=== PATIENT | female | born 2000 | race Two or more races ===

== ENCOUNTER 2023-03-27 15:29 | Observation (INO) | payer MEDICAID ==
[~2023-03-27] VITALS: Ht 165.1 cm; Wt 83.5 kg
== END 2023-03-27 17:21 | disposition home or self-care (01) ==
LOC: LDRP 15:29
PROVIDERS: ADMIT Obstetrics & Gynecology; ATTEND Obstetrics & Gynecology
DX: O26.892 Other specified pregnancy related conditions, second trimester (principal); R10.32 Left lower quadrant pain; Z3A.24 24 weeks gestation of pregnancy
CPT/HCPCS: 59025; 76815; 81002; 94760; G0378

== ENCOUNTER → 2023-06-28 | Outpatient (CLI) | payer MEDICAID ==
[2023-06-28 11:34] LABS: Basophils # (auto) 0 10 ^3/uL (0-0.2); Basophils % (auto) 0.4 % (0.0-2.0); Eosinophils # (auto) 0.1 10 ^3/uL (0-0.8); Hematocrit 39.6 % (36.0-46.0); Hemoglobin 13.3 g/dL (12.2-16.2); Lymphocytes # (auto) 1.8 10 ^3/uL (0.4-5.4); Lymphocytes % (auto) 17.8 % (10.0-50.0); Mean Corpuscular Hemoglobin 29.3 pg (28.0-32.0); Mean Corpuscular Hgb Conc. 33.5 g/dL (32.0-36.0); Mean Corpuscular Volume 87.4 fL (80.0-100.0); Monocytes # (auto) 0.8 10 ^3/uL (0-1.3); Monocytes % (auto) 8.4 % (0.0-12.0); Neutrophils # (auto) 7.3 10 ^3/uL (1.6-8.6); Neutrophils % (auto) 72.4 % (37.0-80.0); Red Blood Cells 4.54 10^6/uL (4.0-5.20); Red Cell Distribution Width 15.8 % (11.8-14.3); White Blood Cell 10.1 10^3/uL (4.4-10.8)
[2023-06-29 07:07] LABS: RPR Non Reactive (Non Reactive)
[2023-06-29 10:07] LABS: Treponema Pallidum Ab LC Non Reactive (Non Reactive)
== END | disposition home or self-care (01) ==
LOC: LAB 11:00
PROVIDERS: ATTEND Obstetrics & Gynecology
DX: Z34.80 Encounter for supervision of other normal pregnancy, unspecified trimester (principal); Z3A.00 Weeks of gestation of pregnancy not specified
CPT/HCPCS: 36415; 84112; 85025; 86592

== ENCOUNTER 2023-06-30 08:45 | Inpatient (IN) | payer MEDICAID ==
[~2023-06-30] VITALS: Ht 165.1 cm; Wt 98.4 kg
[2023-06-30] MEDS ORDERED: LACT. RINGERS/OXYTOCIN 20UNITS 500 ML IV ONE ×2 (09:30→10:00)
[2023-06-30] MEDS ORDERED: BUTORPHANOL TARTRATE 2 MG/1 ML VIAL IV PRN ×2 (09:30)
[2023-06-30] MEDS ORDERED: PROMETHAZINE HCL 25 MG/ML 1ML IV PRN (09:30)
[2023-06-30] MEDS ORDERED: LIDOCAINE 2%HCL (LOCAL ANESTH.) INJ 20ML MDV IJ PRN (09:30)
[2023-06-30 09:45] LABS: Basophils # (auto) 0 10 ^3/uL (0-0.2); Basophils % (auto) 0.5 % (0.0-2.0); Eosinophils # (auto) 0.1 10 ^3/uL (0-0.8); Eosinophils % (auto) 1.2 % (0.0-7.0); Hematocrit 41.3 % (36.0-46.0); Hemoglobin 13.7 g/dL (12.2-16.2); Lymphocytes # (auto) 2.1 10 ^3/uL (0.4-5.4); Lymphocytes % (auto) 19.8 % (10.0-50.0); Mean Corpuscular Hemoglobin 29.1 pg (28.0-32.0); Mean Corpuscular Hgb Conc. 33.1 g/dL (32.0-36.0); Monocytes # (auto) 1.1 10 ^3/uL (0-1.3); Monocytes % (auto) 10.2 % (0.0-12.0); Neutrophils # (auto) 7.2 10 ^3/uL (1.6-8.6); Neutrophils % (auto) 68.3 % (37.0-80.0); Red Blood Cells 4.69 10^6/uL (4.0-5.20); Red Cell Distribution Width 15.5 % (11.8-14.3); White Blood Cell 10.5 10^3/uL (4.4-10.8)
[2023-06-30] MEDS: LACTATED RINGER'S 1,000 ML IV SCH ×6 (09:55→22:13)
[2023-06-30 10:00] LABS: Alanine Aminotransferase 59 U/L (7-40); Albumin 3.7 g/dL (3.2-4.8); Alkaline Phosphatase 307 U/L (46-116); Anion Gap 10 (5-15); Aspartate Aminotransferase 45 U/L (13-40); BUN/Creatinine Ratio 9.7 (10.0-20.0); Bilirubin, Total 0.7 mg/dL (0.2-1.0); Blood Urea Nitrogen 6 mg/dL (9-23); Calcium 9.4 mg/dL (8.5-10.1); Carbon Dioxide 19 mmol/L (20-30); Chloride 110 mmol/L (98-107); Glucose 86 mg/dL (74-106); Potassium 4.2 mmol/L (3.5-5.1); Sodium 139 mmol/L (136-145); Total Protein 6.5 g/dL (5.7-8.2)
[2023-06-30 10:01] LABS: INR 0.95 (0.9-1.15); Partial Thromboplastin Time 29.4 SEC (24.5-34.5)
[2023-06-30 10:17] LABS: Urine Bacteria FEW /hpf (None Seen); Urine Blood Negative /uL (Negative); Urine Clarity HAZY (Clear); Urine Color Colorless (Yellow); Urine Protein, UAD Negative (Negative); Urine Specific Gravity 1.006 (1.001-1.035); Urine Urobilinogen Normal (Negative); Urine WBC 12 /hpf (0 - 5); Urine pH 5.5 (5.0-8.0)
[2023-06-30 10:43] LABS: Amphetamine Screen, Urine Neg (NEGATIVE); Barbiturate Scree,Urine Neg (NEGATIVE); Benzodiazephine Screen, Urine Neg (NEGATIVE); Cocaine Screen, Urine Neg (NEGATIVE); Opiate Scree,Urine Neg (NEGATIVE)
[2023-06-30 10:44] LABS: Cannabinoid Screen, Urine Neg (NEGATIVE); Phencyclidine Screen, Urine Neg (NEGATIVE)
[2023-06-30 11:46] LABS: Uric Acid 6.6 mg/dL (3.1-7.8)
[2023-06-30] MEDS ORDERED: MAGNESIUM SULFATE 40MG/ML 1,000 ML IV SCH (13:45)
[2023-06-30] MEDS ORDERED: MAGNESIUM SULFATE 100 ML IV ONE (13:45)
[2023-06-30] MEDS ORDERED: LORazepam 2MG/ML-1ML VIAL IV ONE (13:45)
[2023-06-30 13:55] LABS: Protein, Urine 13.4 mg/dL (0.0-11.9)
[2023-06-30 13:58] LABS: Creatinine, Urine 19.55 mg/dL (30.0-125.0); Urine Protein/Creatinine Ratio 0.69
[2023-06-30] MEDS ORDERED: CARBOPROST TROMETHAMINE 250 MCG/1ML VIAL IM ONE (14:00)
[2023-06-30] MEDS ORDERED: TRANEXAMIC ACID 1,000 MG in SODIUM CHL 0.9% 100 ML IV ONE (14:00)
[2023-06-30] MEDS ORDERED: miSOPROStol 100 mcg TAB PR PRN (14:00)
[2023-06-30] MEDS ORDERED: miSOPROStol 100 mcg TAB SL PRN (14:00)
[2023-06-30] MEDS ORDERED: CARBOPROST TROMETHAMINE 250 MCG/1ML VIAL IM PRN (14:15)
[2023-06-30] MEDS: LACT. RINGERS/OXYTOCIN 20UNITS 1,000 ML IV SCH (16:02)
[2023-06-30] MEDS ORDERED: ACETAMINOPHEN 325 MG TAB PO PRN (18:30)
[2023-06-30] MEDS: DERMOPLAST 60ML BOTTLE TOP PRN (19:43)
[2023-06-30] MEDS: PHISODERM TOP SOLN 240ML BTL TOP PRN (19:43)
[2023-06-30] MEDS: WITCH HAZEL-GLYCERIN PAD TOP PRN (19:43)
[2023-06-30 20:00] VITALS: BP 134/71; PULSE 102; RESP 18; TEMP 98.4; O2SAT 98
[2023-06-30] MEDS: IBUPROFEN 600 MG TAB PO PRN (20:15)
[2023-06-30 21:00] VITALS: BP 132/73; PULSE 105; RESP 18; O2SAT 98
[2023-06-30 22:00] VITALS: BP 132/71; PULSE 107; RESP 18; O2SAT 100
[2023-06-30] MEDS ORDERED: DIPHENOXYLATE W/ATROPINE 2.5 MG TAB PO SCH (22:00)
[2023-06-30] MEDS: DOCUSATE SOD 100 MG CAP PO SCH (22:00)
[2023-06-30 23:00] VITALS: BP 117/66; PULSE 98; RESP 16; TEMP 98.4; O2SAT 100
[2023-07-01] VITALS (14 sets, daily range): BP systolic 94–147; BP diastolic 49–84; PULSE 60–106; RESP 16–20; TEMP 98.4–98.9; O2SAT 96–100
[2023-07-01] MEDS: LACT. RINGERS/OXYTOCIN 20UNITS 1,000 ML IV SCH (01:00)
[2023-07-01] MEDS ORDERED: MEASLES, MUMPS & RUBELLA VAC(MMRII) 0.5ML SC ONE (01:00)
[2023-07-01 06:33] LABS: Basophils # (auto) 0 10 ^3/uL (0-0.2); Basophils % (auto) 0.2 % (0.0-2.0); Eosinophils # (auto) 0 10 ^3/uL (0-0.8); Eosinophils % (auto) 0.3 % (0.0-7.0); Hematocrit 33.7 % (36.0-46.0); Hemoglobin 10.9 g/dL (12.2-16.2); Lymphocytes # (auto) 2.3 10 ^3/uL (0.4-5.4); Mean Corpuscular Hemoglobin 28.6 pg (28.0-32.0); Mean Corpuscular Hgb Conc. 32.4 g/dL (32.0-36.0); Mean Corpuscular Volume 88.2 fL (80.0-100.0); Monocytes # (auto) 1.7 10 ^3/uL (0-1.3); Monocytes % (auto) 11.2 % (0.0-12.0); Neutrophils # (auto) 11.5 10 ^3/uL (1.6-8.6); Neutrophils % (auto) 73.3 % (37.0-80.0); Nucleated Red Blood Cells % 0.1 %; Red Blood Cells 3.82 10^6/uL (4.0-5.20); Red Cell Distribution Width 15.7 % (11.8-14.3); White Blood Cell 15.6 10^3/uL (4.4-10.8)
[2023-07-01 07:06] LABS: RPR Non Reactive (Non Reactive)
[2023-07-01 07:11] LABS: Alanine Aminotransferase 48 U/L (7-40); Albumin 3.1 g/dL (3.2-4.8); Alkaline Phosphatase 239 U/L (46-116); Anion Gap 6 (5-15); Aspartate Aminotransferase 32 U/L (13-40); BUN/Creatinine Ratio 8.3 (10.0-20.0); Bilirubin, Total 0.7 mg/dL (0.2-1.0); Blood Urea Nitrogen 5 mg/dL (9-23); Calcium 7.2 mg/dL (8.7-10.4); Carbon Dioxide 21 mmol/L (20-30); Chloride 110 mmol/L (98-107); Glucose 101 mg/dL (74-106); Potassium 3.8 mmol/L (3.5-5.1); Sodium 137 mmol/L (136-145); Total Protein 5.3 g/dL (5.7-8.2)
[2023-07-01] MEDS: IBUPROFEN 600 MG TAB PO PRN ×2 (09:44→20:26)
[2023-07-01] MEDS: DOCUSATE CALCIUM 240 MG CAP PO SCH (09:44)
[2023-07-01] MEDS: WITCH HAZEL-GLYCERIN PAD TOP PRN (19:50)
[2023-07-01] MEDS: DERMOPLAST 60ML BOTTLE TOP PRN (19:51)
[2023-07-01] MEDS: PHISODERM TOP SOLN 240ML BTL TOP PRN (20:27)
[2023-07-01] MEDS: DOCUSATE SOD 100 MG CAP PO SCH (22:13)
[2023-07-02 03:18] VITALS: BP 98/56; PULSE 88; RESP 16; TEMP 98.5; O2SAT 99
[2023-07-02 07:00] VITALS: BP 93/56; PULSE 72; RESP 16; TEMP 98.7; O2SAT 98
[2023-07-02] MEDS: DOCUSATE CALCIUM 240 MG CAP PO SCH (10:00)
[2023-07-02 11:05] VITALS: BP 121/71; PULSE 92; RESP 16; TEMP 98.5; O2SAT 98
[2023-07-02] MEDS ORDERED: MEASLES, MUMPS & RUBELLA VAC(MMRII) 0.5ML SC ONE (12:20)
[2023-07-03 21:06] LABS: Treponema pallidum Ab (FTA-Ab) Non Reactive (Non Reactive)
== END 2023-07-02 13:55 | disposition home or self-care (01) | DRG 560 ==
LOC: LDRP 08:45 → UNDOADMOB 08:45 → LDRP 08:54 → UNDOADMOB 09:21 → LDRP 09:21 → OBSVTOIN 09:21 → INTOOBSV 09:21 → LDRP 09:22
PROVIDERS: ADMIT Obstetrics & Gynecology; ATTEND Obstetrics & Gynecology
PROC: 10E0XZZ Delivery of Products of Conception, External Approach (ICD-10-PCS; principal; 2023-06-30)
PROC: 0KQM0ZZ Repair Perineum Muscle, Open Approach (ICD-10-PCS; 2023-06-30)
PROC: 3E0234Z Introduction of Serum, Toxoid and Vaccine into Muscle, Percutaneous Approach (ICD-10-PCS; 2023-07-02)
DX: O14.94 Unspecified pre-eclampsia, complicating childbirth (principal); Z37.0 Single live birth; O42.92 Full-term premature rupture of membranes, unspecified as to length of time between rupture and onset of labor; O70.1 Second degree perineal laceration during delivery; Z3A.38 38 weeks gestation of pregnancy; Z23 Encounter for immunization
CPT/HCPCS: 36415; 59025; 59409; 80053; 80307; 81001; 81002; 82570; 83735; 84156; 84550; 85025; 85610; 85730; 86592; 86850; 86900; 86901; 94760; 94762; 96360; 96361; 96365; 96366; 96372; G0378; J2590

== ENCOUNTER 2024-09-22 11:09 | Emergency (ER) | payer SELFPAY ==
[~2024-09-22] VITALS: Ht 165.1 cm; Wt 82.0 kg
--- NOTE | 2024-09-22 11:50 | ED.PDOC ---
[employer]OR HPI Comments 24 y.o female presents to the ED for a chief complaint of vaginal bleeding associated with nausea, vomiting and diffused abdominal pain that started 3 days ago. Patient reports bleeding has been continuos, heavy and accompanied with 10/10 cramping that has no modifying factors. Patient mentions last menstrual cycle was " a couple months ago". Patient denies any blood clots, fever, chills, back pain. beta hcg quantitative has been ordered due to heavy vaginal bleeding and cramping to rule out ectopic . Chief Complaint: Vaginal Bleed Time Seen by MD: 11:42 Reviewed Notes: Nurses Notes, Medications, Allergies Allergies: Coded Allergies: NO KNOWN ALLERGIES (Unverified , 03/27/23) Home Meds Active Scripts Hydrocodone-Acetaminophen (Hydrocodone Bitartrate/AC 5-325 mg) 1 Tab Tab, 1 TAB PO Q8HP PRN for 5 Days, #15 TAB Prov:ABENA HERNANDEZ MD 09/22/24 Information Source: Patient Mode of Arrival: Wheelchair Timing: Days (3) Severity: Moderate Vaginal Discharge: None Vaginal Lesions: None Vaginal Mass: None Onset Of Mass/Bleeding: Spontaneous Sexual Activity: Other Last Consensual [place]: Unknown Control: None Associated Signs and Symptoms: Vaginal Bleeding, Abdominal Pain, Cramping Past Medical History PAST MEDICAL HISTORY: Denies Surgical History: Denies all surgeries GLO[employer]ATIVE + CONTENT MARKETING History: No 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 Family History Family History: Reviewed,noncontributory to illness, No family hx of Cancer, No family hx of DM, No family hx of Heart graham, No family hx of HTN, No family hx ofKidney graham, No family hx of Liver graham, No family hx of Lung graham, No family hx of Stroke Social History Smoker: Non-Smoker Alcohol: Denies ETOH Use Drugs: Denies Drug Use Lives In: Home Constitutional: denies: chills, diaphoresis, fatigue, fever, malaise, sweats, weakness, others EENTM: denies: blurred vision, double vision, ear bleeding, ear discharge, ear drainage, ear pain, ear ringing, eye pain, eye redness, hearing loss, mouth pain, mouth swelling, nasal discharge, nose bleeding, nose congestion, nose pain, photophobia, tearing, throat pain, throat swelling, voice changes, others Respiratory: denies: cough, hemoptysis, orthopnea, SOB at rest, shortness of breath, SOB with excertion, stridor, wheezing, others Cardiovascular: denies: chest pain, dizzy spells, diaphoresis, Dyspnea on exertion, edema, irregular heart beat, left arm pain, lightheadedness, palpitations, PND, syncope, others Gastrointestinal: reports: abdominal pain, nausea, vomiting; denies: abdomen distended, blood streaked bowels, constipated, diarrhea, dysphagia, difficulty swallowing, hematemesis, melena, poor appetite, poor fluid intake, rectal bleeding, rectal pain, others Genitourinary: reports: abnormal vagina bleeding; denies: burning, dyspareunia, dysuria, flank pain, frequency, hematuria, incontinence, pain, , vagina discharge, urgency, others Neurological: denies: dizziness, fainting, headache, left sided numbness, left sided weakness, numbness, paresthesia, pre-existing deficit, right sided numbness, right sided weakness, seizure, speech problems, tingling, tremors, weakness, others Musculoskeletal: denies: back pain, gout, joint pain, joint swelling, muscle pain, muscle stiffness, neck pain, others Integumetry: denies: bruises, change in color, change in hair/nails, dryness, laceration, lesions, lumps, rash, wounds, others Allergic/Immunocompromised: denies: Difficulty Healing, Frequent Infections, Hives, Itching, others Hematologic/Lymphatic: denies: anemia, blood clots, easy bleeding, easy bruising, swollen glands, others Endocrine: denies: excessive hunger, excessive sweating, excessive thirst, excessive urination, flushing, intolerance to cold, intolerance to heat, unexplained weight gain, unexplained weight loss, others Psychiatric: denies: anxiety, bipolar disorder, depression, hopeless, panic disorder, schizophrenia, sleepless, suicidal, others All Other Systems: Reviewed and Negative Physical Exam General Appearance: Mild Distress HEENT: Pale Conjuntivae (L), Pale Conjuntivae (R), Pharynx Normal, TMs Normal Neck: Full Range of Motion, Non-Tender, Normal, Normal Inspection Respiratory: Chest Non-Tender, Lungs Clear, No Accessory Muscle Use, No Respiratory Distress, Normal Breath Sounds Cardiovascular: No Edema, No JVD, No Murmur, No Gallop, Normal Peripheral Pulses, Regular Rate/Rhythm Breast Exam: Deferred Gastrointestinal: No Organomegaly, Non Tender, No Pulsatile Mass, Normal Bowel Sounds, Soft Genitalia: Deferred Pelvic: Deferred Rectal: Deferred Extremities: No calf tenderness, Normal capillary refill, Normal inspection, Normal range of motion, Non-tender, No pedal edema Musculoskeletal : Apperance: Normal Neurologic: Alert, best second jobs II-XII nml as Tested, No Motor Deficits, Normal Affect, Normal Mood, No Sensory Deficits Cerebellar Function: Normal Reflexes: Normal Skin: Dry, Normal Color, Warm Lymphatic: No Adenopathy Was a procedure done? Was a procedure done?: No Differential Diagnosis (GLOBAL VP CREATIVE + [employer]ENT MARKETING) Vaginal Bleeding: - Complete, - Incomplete, - Inevitable, - Missed, - Threatened, Blood Loss Anemia, Ectopic X-Ray, Labs, Meds, VS Vital Signs Date Time Temp Pulse Resp B/P (MAP) Pulse Ox O2 Delivery O2 Flow Rate FiO2 09/22/24 15:48 59 16 114/68 (83) 100 09/22/24 12:58 90 16 99 Room Air* 0 21 09/22/24 12:56 90 16 99 Room Air 09/22/24 12:56 98.2 90 16 109/50 (69) 99 98.2 09/22/24 11:23 97.4 98 18 107/54 (71) 98 Lab Test 09/22/24 16:00 09/22/24 13:01 Range/Units Urine Color Pending Urine Clarity Pending Urine pH Pending Urine Specific [place] Pending Urine Protein Pending Urine Ketones Pending Urine Blood Pending Urine Nitrite Pending Urine Bilirubin Pending Urine Urobilinogen Pending Urine Leukocyte Esterase Pending Urine RBC Pending Urine WBC Pending Urine Squamous Epithelial Cells Pending Urine Bacteria Pending Urine Glucose Pending White Blood Count 15.5 H 4.4-10.8 10^3/uL Red Blood Count 4.07 4.0-5.20 10^6/uL Hemoglobin 11.9 L 12.2-16.2 g/dL Hematocrit 34.9 L 36.0-46.0 % Mean Corpuscular Volume 86.0 80.0-100.0 fL Mean Corpuscular Hemoglobin 29.2 28.0-32.0 pg Mean Corpuscular Hemoglobin Concent 34.0 32.0-36.0 g/dL Red Cell Distribution Width 13.0 11.8-14.3 % Platelet Count 192 140-450 10^3/uL Mean Platelet Volume 8.0 6.9-10.8 fL Neutrophils (%) (Auto) 88.8 H 37.0-80.0 % Lymphocytes (%) (Auto) 5.0 L 10.0-50.0 % Monocytes (%) (Auto) 6.0 0.0-12.0 % Eosinophils (%) (Auto) 0.0 0.0-7.0 % Basophils (%) (Auto) 0.2 0.0-2.0 % Neutrophils # (Auto) 13.8 H 1.6-8.6 10 ^3/uL Lymphocytes # (Auto) 0.8 0.4-5.4 10 ^3/uL Monocytes # (Auto) 0.9 0-1.3 10 ^3/uL Eosinophils # (Auto) 0 0-0.8 10 ^3/uL Basophils # (Auto) 0 0-0.2 10 ^3/uL Nucleated Red Blood Cells 0.0 % Beta HCG, Quantitative < 1.5 L 1.5-4.2 mIU/mL Current Medications Medications (Trade) Dose Ordered Sig/Cyndi Route Start Time Stop Time Status Last Admin Ondansetron HCl (Zofran) 4 mg ONCE ONCE IV 09/22/24 11:45 09/22/24 11:46 DC 09/22/24 12:51 Sodium Chloride 500 ml @ 500 mls/hr Q1H ONCE IV 09/22/24 11:45 09/22/24 12:44 DC 09/22/24 12:51 Acetaminophen/ Hydrocodone Bitart (Rossiter 10/325MG Tab) 1 tab ONCE ONCE PO 09/22/24 17:00 09/22/24 17:01 DC 09/22/24 16:57 The patient's CBC shows an elevated white blood cell count of 15.5 The rest of the CBC is within normal limits The quantitative hCG is less than 1.5 The patient was given Zofran 4 mg IV push for the nausea The patient was given normal saline at 500 cc bolus. At this time, the patient continues to have pain and bleeding. We are going to order an ultrasound of the pelvis to rule out possible fibroids Images Reviewed?: Images reviewed and evaluated by me Time of 1ST Reevaluation: 11:46 Reevaluation 1ST: Unchanged Patient Education/Counseling: Diagnosis, Treatment, Prognosis, Need For Follow Up Family Education/Counseling: No Family Present Departure 1 Departure Time of Disposition: 17:08 Impression: Primary Impression: Vaginal bleeding Additional Impression: Pelvic pain Disposition: 01 HOME / SELF CARE / HOMELESS Condition: Fair e-Prescriptions Hydrocodone-Acetaminophen (Hydrocodone Bitartrate/AC 5-325 mg) 1 Tab Tab 1 TAB PO Q8HP PRN for 5 Days, #15 TAB Prov: ABENA HERNANDEZ MD 09/22/24 Discharged With: Self Critical Care Note Critical Care Time?: No Stability Stability form required: No I personally scribed for ABENA HERNANDEZ MD ([email or web address]) on 09/22/24 at 11:50. Electronically submitted by Lou Mcmahon ([facility]). ABENA HERNANDEZ MD Sep 22, 2024 11:50
[2024-09-22] MEDS: ONDANSETRON HCL 4 MG/2 ML VIAL IV ONE (12:51)
[2024-09-22] MEDS: SODIUM CHLORIDE 0.9% 500 ML IV ONE (12:51)
[2024-09-22 12:58] VITALS: PULSE 90; RESP 16; O2SAT 99
[2024-09-22 13:30] LABS: Basophils # (auto) 0 10 ^3/uL (0-0.2); Basophils % (auto) 0.2 % (0.0-2.0); Eosinophils # (auto) 0 10 ^3/uL (0-0.8); Hematocrit 34.9 % (36.0-46.0); Hemoglobin 11.9 g/dL (12.2-16.2); Lymphocytes # (auto) 0.8 10 ^3/uL (0.4-5.4); Mean Corpuscular Hemoglobin 29.2 pg (28.0-32.0); Monocytes # (auto) 0.9 10 ^3/uL (0-1.3); Neutrophils # (auto) 13.8 10 ^3/uL (1.6-8.6); Neutrophils % (auto) 88.8 % (37.0-80.0); Platelet Count (auto) 192 10^3/uL (140-450); Red Blood Cells 4.07 10^6/uL (4.0-5.20); White Blood Cell 15.5 10^3/uL (4.4-10.8)
[2024-09-22] MEDS: HYDROcodone-ACET 10/325MG TAB PO ONE (16:57)
--- NOTE | 2024-09-22 16:58 | DVH ---
INDICATION: pain and severe bleeding TECHNIQUE: Multiple real-time grayscale transabdominal sonographic images along with color and duplex Doppler of the uterus and ovaries were obtained. COMPARISON: Right ovary not visualized. FINDINGS: The uterus measures 7.1 x 6.3 x 4.5 cm. The endometrial stripe measures 0.79 cm. The right ovary not visualized The left ovary measures 2.9 x 2.3 x 2.4 cm. Left ovarian volume is 8.4 cc cm. Doppler imaging of the vascularity in the left ovary is normal. IMPRESSION: 1. Uterus appears normal 2. Left ovary appears normal with normal Doppler vascular flow. 3. Right ovary not visualized
[2024-09-22] MEDS ORDERED: HYDR-4902 PO (17:06)
[2024-09-22 17:07] LABS: Urine Bacteria None Seen /hpf (None Seen)
[2024-09-22] MEDS ORDERED: ZOFR4T PO (17:15)
[2024-09-22 17:24] VITALS: BP 100/64; PULSE 88; RESP 16; TEMP 97.8; O2SAT 97
[2024-09-22 17:31] LABS: Urine Blood 3+ /uL (Negative); Urine Clarity Ex.Turbid (Clear); Urine Color Brown (Yellow); Urine Mucus FEW (None Seen); Urine Protein, UAD 1+ (Negative); Urine Squamous Epithelial Cell FEW /hpf (<5); Urine Urobilinogen Normal (Negative); Urine WBC 158 /hpf (0 - 5); Urine WBC Clumps PRESENT /hpf (None Seen); Urine pH 5.5 (5.0-9.0)
== END 2024-09-22 17:31 | disposition home or self-care (01) ==
LOC: ER 11:09
DX: N93.9 Abnormal uterine and vaginal bleeding, unspecified (principal); R10.2 Pelvic and perineal pain
CPT/HCPCS: 36415; 76856; 81001; 84702; 85025; 96361; 96374; 99285; J2405; J7040